=== PATIENT | female | born 2000 | race Caucasian/White ===

== ENCOUNTER 2019-01-06 15:47 | Emergency (ER) | payer OTHER ==
[~2019-01-06] VITALS: Ht 160 cm; Wt 79.8 kg
[2019-01-06 16:05] VITALS: Ht 160 cm; Wt 79.8 kg
[2019-01-06 18:07] VITALS: BP 119/75
== END 2019-01-06 18:07 | disposition home or self-care (01) ==
LOC: ED 15:47
DX: M79.672 Pain in left foot (principal); M79.671 Pain in right foot; R20.2 Paresthesia of skin; J45.909 Unspecified asthma, uncomplicated
CPT/HCPCS: 82962

== ENCOUNTER 2020-01-26 11:24 | Emergency (ER) | payer OTHER ==
[~2020-01-26] VITALS: Ht 154.9 cm; Wt 80.7 kg
[2020-01-26 11:37] VITALS: Ht 154.9 cm; Wt 80.7 kg
[2020-01-26 13:01] VITALS: BP 121/76
== END 2020-01-26 13:01 | disposition home or self-care (01) ==
LOC: ED 11:24
DX: L02.211 Cutaneous abscess of abdominal wall (principal); J45.909 Unspecified asthma, uncomplicated
CPT/HCPCS: J2001

== ENCOUNTER 2020-01-28 12:19 | Emergency (ER) | payer OTHER ==
[~2020-01-28] VITALS: Ht 154.9 cm; Wt 81.2 kg
[2020-01-28 13:07] VITALS: BP 122/71; Ht 154.9 cm; Wt 81.2 kg
== END 2020-01-28 14:04 | disposition home or self-care (01) ==
LOC: ED 12:19
DX: L02.211 Cutaneous abscess of abdominal wall (principal); J45.909 Unspecified asthma, uncomplicated